=== PATIENT | male | born 1985 | race Hispanic/Latino ===

== ENCOUNTER 2023-10-30 11:47 | Emergency (ER) | payer SELFPAY ==
[2023-10-30] MEDS ORDERED: Acetaminophen 500 MG TAB ONE (14:10)
[2023-10-30] MEDS ORDERED: Boostrix 0.5 ML (Tdap) VIAL (>/=7 yrs of age) ONE (15:44)
== END 2023-10-30 16:04 | disposition home or self-care (01) ==
LOC: ERS 11:47
DX: Z48.817 Encounter for surgical aftercare following surgery on the skin and subcutaneous tissue (principal); L72.3 Sebaceous cyst; Z23 Encounter for immunization
CPT/HCPCS: 90471; 90715

== ENCOUNTER 2025-03-23 09:16 | Emergency (ER) | payer SELFPAY | END 2025-03-23 10:57 | disposition home or self-care (01) | LOC: ERS 09:16 | DX: L02.31 Cutaneous abscess of buttock (principal) | CPT/HCPCS: 99282 ==